=== PATIENT | female | born 1960 | race Caucasian/White ===

== ENCOUNTER 2020-11-20 23:08 | Emergency (ER) | payer BC ==
[2020-11-20] MEDS ORDERED: Acetaminophen/Codeine 30-300mg Tablet ONE (23:48)
[2020-11-20] MEDS ORDERED: Sulfameth/Trimethoprim DS 800-160mg TAB ONE (23:49)
[2020-11-20] MEDS ORDERED: Ibuprofen 200 MG TAB ONE (23:49)
[2020-11-20] MEDS ORDERED: Amoxicillin/Potassium Clav 875 MG TAB ONE (23:55)
== END 2020-11-21 00:05 | disposition home or self-care (01) ==
LOC: NAV ERS 23:08
DX: K02.9 Dental caries, unspecified (principal); E78.5 Hyperlipidemia, unspecified; M06.9 Rheumatoid arthritis, unspecified; Z79.899 Other long term (current) drug therapy
CPT/HCPCS: 99282